=== PATIENT | female | born 1960 | race Caucasian/White ===

== ENCOUNTER 2017-10-29 09:13 | Emergency (ER) | payer OTHER ==
[~2017-10-29] VITALS: Ht 167.6 cm; Wt 61.7 kg
[2017-10-29] MEDS ORDERED: AMIODARONE HCL100 MG (09:34)
[2017-10-29] MEDS ORDERED: CLOPIDOGREL BIS75 MG (09:35)
== END 2017-10-29 10:07 | disposition home or self-care (01) ==
LOC: ER 09:13
DX: B35.4 Tinea corporis (principal)

== ENCOUNTER 2023-11-25 09:34 | Emergency (ER) | payer OTHER ==
[~2023-11-25] VITALS: Ht 167.6 cm; Wt 67.6 kg
[~2023-11-25 09:34] MED LIST: AMIODARONE HCL100 MG; CLOPIDOGREL BIS75 MG
[2023-11-25] MEDS ORDERED: LEVALBUTEROL HCL 1.25 MG/3 ML SOLUTION IH STA (10:26)
[2023-11-25] MEDS ORDERED: HYDROCODONE/CHLORPHEN P-STIREX 5 ML ML PO STA (10:26)
== END 2023-11-25 12:38 | disposition home or self-care (01) ==
LOC: ER 09:34
DX: J40 Bronchitis, not specified as acute or chronic (principal)